=== PATIENT | male | born 1990 | race Two or more races ===

== ENCOUNTER 2025-06-28 16:30 | Emergency (ER) | payer MEDICAID ==
[~2025-06-28] VITALS: Ht 172.7 cm; Wt 98.0 kg
[2025-06-28 16:55] VITALS: TEMP 99.1
[2025-06-28] MEDS ORDERED: IPRATROPIUM NEB FS 0.5 MG/2.5 ML AMPUL.NEB ONE (17:42)
[2025-06-28] MEDS ORDERED: ALBUTEROL FS 2.5 MG/3 ML VIAL.NEB ONE (17:42)
[2025-06-28 17:46] VITALS: O2SAT 94
[2025-06-28] MEDS: IV NS 0.9% 500 ML BAG IV ONE (17:47)
[2025-06-28] MEDS: ALBUTEROL FS 2.5 MG/3 ML VIAL.NEB NEB ONE (17:48)
[2025-06-28] MEDS: IPRATROPIUM NEB FS 0.5 MG/2.5 ML AMPUL.NEB NEB ONE (17:48)
[2025-06-28 17:49] LABS: PLATELET COUNT (AUTO) 199 K/uL (150-450); RED BLOOD CELL COUNT(AUTO) 5.19 MIL/uL (4.5-6.0); RED CELL DISTRIBUTION WIDTH 13.0 % (11.5-15.0); WHITE BLOOD COUNT (AUTO) 10.5 K/uL (4.3-11.0)
[2025-06-28 17:57] LABS: CALCIUM, SERUM 8.7 mg/dL (8.5-10.1); CREATININE 0.9 mg/dL (0.6-1.3); SODIUM SERUM 142.0 mmol/L (136-145); UREA NITROGEN, BLOOD 10.0 mg/dL (7-18)
[2025-06-28 18:01] VITALS: O2SAT 97; O2SAT 98
[2025-06-28] MEDS ORDERED: PRED20TA PO (18:59)
[2025-06-28] MEDS ORDERED: AZIT250T PO (18:59)
[2025-06-28] MEDS ORDERED: IBUP-1953 PO (18:59)
[2025-06-28] MEDS ORDERED: ALBU18HF2 INH (18:59)
[2025-06-28 19:08] VITALS: BP 140/84; O2SAT 98
== END 2025-06-28 19:08 | disposition home or self-care (01) ==
LOC: ER 16:49
DX: J40 Bronchitis, not specified as acute or chronic (principal); J06.9 Acute upper respiratory infection, unspecified; L05.91 Pilonidal cyst without abscess; F17.210 Nicotine dependence, cigarettes, uncomplicated; Z60.3 Acculturation difficulty; Z79.52 Long term (current) use of systemic steroids; Z87.01 Personal history of pneumonia (recurrent)
CPT/HCPCS: 99285; 96374; 71045; 85025; 80048; 36415; 94640; J2919; J7040